=== PATIENT | male | born 1990 | race Caucasian/White ===

== ENCOUNTER 2023-04-18 06:32 | Day surgery (SDC) | payer BC, SELFPAY ==
[2023-04-18] VITALS (8 sets, daily range): BP systolic 101–136; BP diastolic 64–87
[2023-04-18] MEDS: TYLENOL 1000 MG PO (10:04)
[2023-04-18] MEDS: CELEBREX 200 MG PO (10:04)
[2023-04-18] MEDS: NORMOSOL-R 1000 IV (10:09)
== END 2023-04-18 14:42 | disposition home or self-care (01) ==
LOC: SDS 06:32
PROVIDERS: ATTENDING PHYSICIAN Orthopaedic Surgery Hand Surgery; FAMILY PHYSICIAN Physician Assistant Medical
DX: T84.84XA Pain due to internal orthopedic prosthetic devices, implants and grafts, initial encounter (principal); Y83.1 Surgical operation with implant of artificial internal device as the cause of abnormal reaction of the patient, or of later complication, without mention of misadventure at the time of the procedure; L90.5 Scar conditions and fibrosis of skin
CPT/HCPCS: 23076; 20680